=== PATIENT | female | born 1945 | race Caucasian/White ===

== ENCOUNTER → 2018-12-21 | Outpatient (CLI) | payer MEDICARE ==
--- NOTE | 2018-12-23 08:58 | MM ---
Reason for exam: screening (asymptomatic). Last mammogram was performed 3 years and 10 months ago. History: Patient is postmenopausal. Benign excisional biopsy of the right breast, January 27, 1997. Took unspecified hormones for 6 years 1 month. Physical Findings: A clinical breast exam by your physician is recommended on an annual basis and results should be correlated with mammographic findings. MG 3D Screening Mammo W/Cad Bilateral CC and MLO view(s) were taken. Prior study comparison: February 22, 2015, bilateral MG 3d screening mammo w/cad. February 11, 2014, bilateral MG screening mammo w CAD. There are scattered fibroglandular densities. There is chronic nodularity in the right breast. No significant changes when compared with prior studies. ASSESSMENT: Negative, BI-RAD 1 RECOMMENDATION: Routine screening mammogram of both breasts in 1 year.
== END | disposition home or self-care (01) ==
LOC: RADMAMWWP 12:30
PROVIDERS: ATTEND Family Medicine
DX: Z12.31 Encounter for screening mammogram for malignant neoplasm of breast (principal)
CPT/HCPCS: 77063; 77067

== ENCOUNTER → 2019-09-15 | Outpatient (CLI) | payer MEDICARE ==
[2019-09-15 10:13] VITALS: BP 184/77; PULSE 79; RESP 20; TEMP 98.2
--- NOTE | 2019-09-15 11:34 | P.HPOB ---
History of Present Illness H&P Date: 09/15/19 Chief Complaint: The patient is here for her routine gynecologic exam. This is a 73-year-old with an LMP of approximately 1997. The patient is here to establish with this office. 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 The patient states she developed some urinary urgency about 3 weeks ago. Urine testing through her PCP was negative per the patient. The urinary symptoms subsided, but she developed some vaginal burning. She tried a probiotic which did not seem to help. She was prescribed Diflucan, but the patient did not want to take this. Instead, she used [id number] Monistat 7 about 3 days ago. After the first application, she developed vaginal burning that was worse through 2 days ago. She discontinued the Monistat. The vaginal burning subsided and currently she is now not noticing any vaginal symptoms. During all of this she did not have vaginal discharge or odor. She has not been sexually active for many years. She is otherwise without complaints. Review of Systems She denies respiratory, cardiac and G.I. problems. She denies maltreatment or problems with falling. : she denies any significant problems with urinary leakage. She did have slight urinary urgency 3 weeks ago as in the HPI. Past Medical History Past Medical History: Hypertension, Renal Disease Additional Past Medical History / Comment(s): Mild abnormalities in renal function studies. 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 3 previous vaginal deliveries. History of Any Multi-Drug Resistant Organisms: None Reported Past Surgical History: Tonsillectomy Past Psychological History: No Psychological Hx Reported Smoking Status: Former smoker Past Alcohol Use History: None Reported Additional Past Alcohol Use History / Comment(s): Quit smoking at age 29. Past Drug Use History: None Reported Additional History: She is a . 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 Medications and Allergies Home Medications Medication Instructions Recorded Confirmed Type Black Current Seed Oil 1 tab PO DAILY 09/15/19 09/15/19 History Calcium Carbonate [Calcium] 600 mg PO DAILY 09/15/19 09/15/19 History Cod Liver Oil 1 each PO DAILY 09/15/19 09/15/19 History D-Mannose 500 mg PO DAILY 09/15/19 09/15/19 History L.acidoph,Paracasei, B.lactis 1 each PO DAILY 09/15/19 09/15/19 History [Probiotic] Min-Kelly 1 tab PO DAILY 09/15/19 History Pro Dha Eye 1 tab PO DAILY 09/15/19 09/15/19 History amLODIPine [Norvasc] 7.5 mg PO DAILY 09/15/19 09/15/19 History Allergies Allergy/AdvReac Type Severity Reaction Status Date / Time No Known Allergies Allergy Unverified 09/15/19 10:02 Exam Vital Signs Temp Pulse Resp BP Pulse Ox 09/15/19 10:10 98.2 F 79 20 184/77 99 Intake and Output 09/14/19 09/15/19 09/15/19 22:59 06:59 14:59 Other: Weight 82.1 kg Repeat blood pressure 178/76. Height 5 feet 3 inches, weight 181 pounds, BMI 32.1. This is a well-developed well-nourished white female who is alert and oriented times 3 in no acute distress. HEENT: Within normal limits. NECK: Supple without mass or thyromegaly. CHEST AND LUNGS: Clear to auscultation. HEART: Regular rate and rhythm. BREASTS: Are without mass or discharge. AXILLARY EXAM: Negative for adenopathy. BACK: Negative for CVA tenderness. ABDOMEN: Soft, nontender, without palpable masses. PELVIC EXAM: Normal external genitalia with mild to moderate atrophy. Cervix and vagina appear normal with mild to moderate atrophy. The cervix is slightly friable upon doing the Pap smear. There is no unusual discharge. No vaginal odor is noted. There is no evidence of prolapse. The uterus is midposition, nongravid size and nontender. There are no palpable adnexal masses or tenderness. RECTAL EXAM: Rectovaginal exam is negative for mass or tenderness and is negative for occult blood. EXTREMITIES: Nontender. IMPRESSION: 1. 73-year-old menopausal female with vaginitis symptoms, mainly vaginal burn ing which has caused worsening symptoms for 1 day and then resolved after 1 application of Monistat cream. Differential diagnosis will include atrophic vaginitis, resolved twin vaginitis, and bacterial vaginosis. Atrophic vaginitis seems most likely. 2. Elevated blood pressure with history of chronic hypertension. PLAN: 1. Pap smear was performed. This was done initially because of her symptoms and because previous Pap smears were not known. I since have reviewed Dr. Smith's records and she had negative Pap smears yearly up to 2012. If the current Pap smear is negative, we will consider discontinuing Pap smears for cervical screening. 2. Self breast awareness was discussed with the patient. 3. Screening mammogram was negative done on 12/21/2018. She will repeat this after 1 and the order slip was given to the patient for this. 4. Affirm testing for twin, Gardnerella and Trichomonas was obtained from the vagina. If this is negative, we will treat her for probable atrophic vaginitis. We have discussed the option of an estrogen cream. She would like to use at this time a vaginal moisturizer which can be obtained [id number] and used as directed. 5. Osteoporosis prevention was discussed. I have stressed the importance of adequate calcium, vitamin D and regular exercise. Recommended amounts of calcium and vitamin D were also discussed. I have recommended bone density testing since it has been many years since her last one. The order slip was given to the patient for this. 6. We have discussed her elevated blood pressure. I recommended that she check her blood pressure at least daily since she has her own blood pressure cuff at home. She will keep a log with her blood pressures and follow up with Dr. Bell for elevated blood pressures. 7. The patient was advised to return in 1-2 years for her well woman examination and as needed.
--- NOTE | 2019-09-17 15:27 | P.PN ---
Progress Note - Text Progress Note Date: 09/17/19 Patient was called with results. The Affirm testing for Shira, Garderella and Trichomonas was initially not seen in the lab section so the lab was called. Verbal results were obtained and the Affirm testing was all negative. The patient was given these results. She states she has had slight burning again. She will try the vaginial moisturizer as directed. She will call if having persistent or worsening symptoms. We can then reevaluate and consider a trial of estradiol cream. She will return in 1-2 years and as needed. Pap is still pending.
--- NOTE | 2019-09-28 09:15 | P.PN ---
Progress Note - Text Progress Note Date: 09/28/19 OUTPATIENT FOLLOW-UP NOTE TEST(S)/RESULTS: Pap smear from 09/15/2019 was negative. METHOD OF NOTIFICATION: Patient was notified by phone. PATIENT COMMENTS: The patient states her vaginal burning has gradually improved. She states she has used a small amount of Coconut oil which seems to be help ful. She is also taking a probiotic. She would like to avoid medications including the vaginal moisturizer that was suggested. DIAGNOSIS: Negative Pap smear DISCUSSION: PLAN: The patient was advised to return in 1-2 years for her well woman examination and as needed.
== END | disposition home or self-care (01) ==
LOC: WWCWWP 09:48
PROVIDERS: ATTEND Obstetrics & Gynecology
DX: Z53.9 Procedure and treatment not carried out, unspecified reason (principal)

== ENCOUNTER → 2022-04-15 | Outpatient (CLI) | payer MEDICARE ==
--- NOTE | 2022-04-16 18:35 | MM ---
Reason for Exam: Screening (asymptomatic). Last mammogram was performed 3 year(s) and 4 month(s) ago. Patient History: Menarche at age 15. First Full-Term at age 30. Postmenopausal. Unspecified Hormone for 6 years, 1 month. 01/27/1997, Benign Excisional Biopsy on the right side. Risk Values: Shavon 5 year model risk: 2.3%. NCI Lifetime model risk: 5.3%. Prior Study Comparison: 02/11/2014 Bilateral Screening Mammogram, [facility]. 02/22/2015 Bilateral Screening Mammogram, [facility]. 12/21/2018 Bilateral Screening Mammogram, [facility]. Tissue Density: There are scattered fibroglandular densities. Findings: Analyzed By CAD. There is no suspicious group of microcalcifications or new suspicious mass in either breast. Overall Assessment: Negative, BI-RAD 1 Management: Screening Mammogram of both breasts in 1 year. 1. Patient should continue monthly self breast exams. 2. A clinical breast exam by your physician is recommended on an annual basis. 3. This exam should not preclude additional follow-up of suspicious palpable abnormalities. Electronically signed and approved by: Wes Carrillo M.D. Radiologist
== END | disposition home or self-care (01) ==
LOC: RADMAMWWP 11:31
PROVIDERS: ATTEND Family Medicine
DX: Z12.31 Encounter for screening mammogram for malignant neoplasm of breast (principal); Z78.0 Asymptomatic menopausal state; Z98.890 Other specified postprocedural states
CPT/HCPCS: 77063; 77067